=== PATIENT | female | born 1945 | race Caucasian/White ===

== ENCOUNTER 2017-02-23 17:51 | Inpatient (IN) | payer MEDICARE ==
[~2017-02-23] VITALS: Ht 152.4 cm; Wt 50.8 kg
--- NOTE | ~2017-02-23 | EKG ---
[place] [address] [facility] [address] [place] [address] ELECTROCARDIOGRAM REPORT Name: SHAI RAMESH Room #: 543-P ADM IN M.R.#: [id number] Admission: 02/23/17 Attend Phys: Martin Bradley DO Discharge: Date of : 43 Report #: [id number] THIS REPORT FOR: //name// [facility] ED Test Date: 2017-02-23 Test Time: 18:20:47 Pat Name: SHAI RAMESH Department: Room: [facility] Gender: F Operations Executive: WESLEY : 1945 Requested By: Rosalinda Stone Order Number: [id number] MD: Wilner Almeida Measurements Intervals [place] Rate: 88 P: 41 AR: 147 QRS: -1 QRSD: 86 T: 69 QT: 361 QTc: 437 Interpretive Statements Sinus rhythm Abnormal R-wave progression, early transition Abnormal T, consider ischemia, anterior leads No previous ECG available for comparison Electronically Signed On 02-27-2017 21:54:55 CDT by Wilner Almeida [email or web address] <ELECTRONICALLY SIGNED> By: Wilner Almeida MD 02/27/17 2154 19 19 Wilner Almeida MD /[email or web address]
[~2017-02-23 17:51] MED LIST: ADVAIR HFA 230M12 GM INH; BENADRYL25 MG PO; CYMBALTA60 MG PO; HYDROCODONE-AP1 EAC6 PO; IRON325 PO; KLOR-CON 1010 MEQ PO; MAGNESIUM OXID400 MG PO; MELATONIN3 MG PO; MOBIC15 MG PO; PROPRANOLOL 1010 MG PO
[2017-02-23 17:52] VITALS: BP 128/73
[2017-02-23 18:31] LABS: ABSOLUTE NEUTROPHILS 10.2 thou/uL (1.4-8.2); BASOPHILS 0.5 % (0.0-2.0); EOSINOPHILS 1.6 % (0.0-3.0); HEMATOCRIT 35.3 % (37.0-47.0); HEMOGLOBIN 11.1 gm/dL (12.0-15.0); LYMPHOCYTES 13.6 % (24.0-44.0); MANUAL DIFF NO; MCH 30.9 pg (26.0-34.0); MCHC 31.5 g/dL (28.0-37.0); MONOCYTES 4.3 % (1.0-8.0); PLATELET COUNT 279 thou/uL (150-400); RDW 15.8 % (10.5-14.5); WBC 12.8 thou/uL (4.0-11.0)
[2017-02-23 18:40] LABS: CALCIUM 7.8 mg/dL (8.5-10.1); CREATININE 1.4 mg/dL (0.6-1.0)
[2017-02-23 18:43] LABS: INR 1.4
[2017-02-23 18:44] LABS: ALBUMIN 2.5 g/dL (3.4-5.0); TOTAL BILIRUBIN 0.2 mg/dL (<0.1-1.0); TOTAL PROTEIN 6.9 g/dL (6.4-8.2)
[2017-02-23 21:29] VITALS: BP 100/67
[2017-02-23 23:38] VITALS: BP 131/69
[2017-02-24] VITALS (8 sets, daily range): BP systolic 98–135; BP diastolic 64–84
[2017-02-24 16:07] LABS: HEMOGLOBIN 9.9 gm/dL (12.0-15.0); MCH 30.8 pg (26.0-34.0); MCHC 31.8 g/dL (28.0-37.0); MCV 96.8 fL (80.0-100.0); RBC 3.2 mil/uL (4.20-5.00); RDW 15.7 % (10.5-14.5); WBC 13.7 thou/uL (4.0-11.0)
[2017-02-25 04:16] VITALS: BP 115/74
[2017-02-25 05:52] LABS: HEMOGLOBIN 8.4 gm/dL (12.0-15.0); MCH 30.7 pg (26.0-34.0); MCHC 31.1 g/dL (28.0-37.0); MCV 98.9 fL (80.0-100.0); RBC 2.73 mil/uL (4.20-5.00); RDW 15.3 % (10.5-14.5); WBC 13.2 thou/uL (4.0-11.0)
[2017-02-25 07:06] VITALS: BP 118/61
[2017-02-25 15:27] VITALS: BP 103/53
[2017-02-25 19:32] VITALS: BP 122/78
[2017-02-26 04:16] VITALS: BP 127/68
[2017-02-26 04:37] LABS: HEMOGLOBIN 7.9 gm/dL (12.0-15.0); MCH 31.2 pg (26.0-34.0); MCHC 31.7 g/dL (28.0-37.0); MCV 98.4 fL (80.0-100.0); RBC 2.54 mil/uL (4.20-5.00); RDW 15.3 % (10.5-14.5); WBC 10.5 thou/uL (4.0-11.0)
[2017-02-26 08:19] VITALS: BP 127/54
[2017-02-26 16:56] VITALS: BP 110/88
[2017-02-26 20:00] VITALS: BP 118/68
[2017-02-27 04:00] VITALS: BP 166/70
[2017-02-27 05:52] LABS: ABSOLUTE NEUTROPHILS 9.7 thou/uL (1.4-8.2); BASOPHILS 0.5 % (0.0-2.0); HEMATOCRIT 29.1 % (37.0-47.0); HEMOGLOBIN 9.2 gm/dL (12.0-15.0); LYMPHOCYTES 22.2 % (24.0-44.0); MCH 31.1 pg (26.0-34.0); MCHC 31.6 g/dL (28.0-37.0); MCV 98.3 fL (80.0-100.0); MONOCYTES 6.5 % (1.0-8.0); POLYS 68.8 % (36.0-66.0); RBC 2.96 mil/uL (4.20-5.00); RDW 15.2 % (10.5-14.5)
[2017-02-27 05:59] LABS: MANUAL DIFF NO; PLATELET COUNT 259 thou/uL (150-400)
[2017-02-27 06:09] LABS: ALBUMIN 2.1 g/dL (3.4-5.0); CALCIUM 7.7 mg/dL (8.5-10.1); CREATININE 0.8 mg/dL (0.6-1.0); POTASSIUM 3.8 mmol/L (3.5-5.1); TOTAL BILIRUBIN 0.3 mg/dL (<0.1-1.0); TOTAL PROTEIN 6.6 g/dL (6.4-8.2)
[2017-02-27 08:00] VITALS: BP 117/62; BP 122/65
[2017-02-27 15:41] VITALS: BP 121/72
[2017-02-27 20:00] VITALS: BP 124/80
[2017-02-28 04:00] VITALS: BP 131/70
[2017-02-28 05:33] LABS: ABSOLUTE NEUTROPHILS 7.6 thou/uL (1.4-8.2); BASOPHILS 0.5 % (0.0-2.0); EOSINOPHILS 1.5 % (0.0-3.0); HEMATOCRIT 27.8 % (37.0-47.0); HEMOGLOBIN 8.9 gm/dL (12.0-15.0); LYMPHOCYTES 24.5 % (24.0-44.0); MCH 31.2 pg (26.0-34.0); MCHC 32.2 g/dL (28.0-37.0); MONOCYTES 7.5 % (1.0-8.0); PLATELET COUNT 282 thou/uL (150-400); RBC 2.87 mil/uL (4.20-5.00); RDW 15.2 % (10.5-14.5); WBC 11.5 thou/uL (4.0-11.0)
[2017-02-28 05:37] LABS: MANUAL DIFF NO
[2017-02-28 05:56] LABS: CALCIUM 7.8 mg/dL (8.5-10.1); CREATININE 0.9 mg/dL (0.6-1.0); POTASSIUM 3.7 mmol/L (3.5-5.1); TOTAL BILIRUBIN 0.3 mg/dL (<0.1-1.0); TOTAL PROTEIN 6.4 g/dL (6.4-8.2)
[2017-02-28 08:32] VITALS: BP 117/74
[2017-02-28] MEDS ORDERED: HYDROCODONE-AP1 EAC6 PO (10:20)
[2017-02-28 11:38] VITALS: BP 117/74
[2017-02-28 13:25] VITALS: BP 117/74
[2017-02-28 14:00] VITALS: BP 117/74
== END 2017-02-28 18:37 | disposition home health service (06) | DRG 480 ==
LOC: ER 17:51 → 5S 20:00 → EROBS 20:00 → 5S 21:49
PROVIDERS: Nurse Practitioner Family; Orthopaedic Surgery; Physician Assistant
PROC: 0QSC04Z Reposition Left Lower Femur with Internal Fixation Device, Open Approach (ICD-10-PCS; principal; 2017-02-24)
DX: S72.402A Unspecified fracture of lower end of left femur, initial encounter for closed fracture (principal); E43 Unspecified severe protein-calorie malnutrition; Z96.611 Presence of right artificial shoulder joint; K21.9 Gastro-esophageal reflux disease without esophagitis; J44.9 Chronic obstructive pulmonary disease, unspecified; M19.90 Unspecified osteoarthritis, unspecified site; S09.90XA Unspecified injury of head, initial encounter; I10 Essential (primary) hypertension; D64.9 Anemia, unspecified; Z88.6 Allergy status to analgesic agent; Z90.710 Acquired absence of both cervix and uterus; Z90.49 Acquired absence of other specified parts of digestive tract; Z87.442 Personal history of urinary calculi; Z98.84 Bariatric surgery status; Z83.3 Family history of diabetes mellitus; Z82.49 Family history of ischemic heart disease and other diseases of the circulatory system; Z82.3 Family history of stroke; Z80.9 Family history of malignant neoplasm, unspecified; Z79.899 Other long term (current) drug therapy; Z68.21 Body mass index [BMI] 21.0-21.9, adult; W18.39XA Other fall on same level, initial encounter; Y93.89 Activity, other specified; Y92.89 Other specified places as the place of occurrence of the external cause; Y99.8 Other external cause status
CPT/HCPCS: 10086; 50010; 50101; 50386; 50417; 51412; 55430; 56528; 62110; 62900; 70005